=== PATIENT | male | born 1975 | race Hispanic/Latino ===

== ENCOUNTER 2021-02-22 10:21 | Emergency (ER) | payer MEDICARE ==
[~2021-02-22] VITALS: Ht 182.9 cm; Wt 108.9 kg
[2021-02-22] MEDS ORDERED: HYDROCODONE/APAP 10MG-325MG TAB PO NR (10:45)
[2021-02-22] MEDS ORDERED: DEXAMETHASONE SOD PHOS 10 MG/1 ML VIAL IM ONE (10:45)
[2021-02-22] MEDS ORDERED: KETOROLAC TROMETHAMINE 60 MG/2 ML VIAL IM NR (12:30)
[2021-02-22 12:36] VITALS: BP 121/90
[2021-02-22] MEDS ORDERED: KETOROLAC TROMETHAMINE 30 MG/ML VIAL ONE (12:36)
== END 2021-02-22 12:49 | disposition home or self-care (01) ==
LOC: ER 10:54
DX: M79.641 Pain in right hand (principal); M25.552 Pain in left hip; M1A.9XX1 Chronic gout, unspecified, with tophus (tophi); I10 Essential (primary) hypertension; E11.9 Type 2 diabetes mellitus without complications
CPT/HCPCS: 73502; 99283; J1100; J1885